=== PATIENT | male | born 1965 | race Caucasian/White ===

== ENCOUNTER 2017-12-11 12:05 | Emergency (ER) | payer SELFPAY ==
[~2017-12-11 12:05] MED LIST: ATORVASTATIN CALCIUM 80 MG TABLET PO SCH
--- NOTE | 2017-12-11 13:07 | ER Document Report ---
ED Medical Screen (RME) - General Chief Complaint: Chest Pain Stated Complaint: CHEST PAIN Time Seen by Provider: 12/11/17 13:05 Notes: pt with no previous hx of CAD presents with three hours of cp that started at work. no previous workup. no pmd or daily meds TRAVEL OUTSIDE OF THE [place] IN LAST 30 DAYS: No - Related Data Allergies/Adverse Reactions: No Known Allergies Allergy (Unverified 12/11/17 12:59) Past Medical History - Social History Frequency of alcohol use: None Renal/ Medical History: Denies: Hx Peritoneal Dialysis Physical Exam - Vital signs Vitals: Temp Pulse Resp BP Pulse Ox 98.3 F 86 16 152/87 H 95 12/11/17 12:27 12/11/17 12:27 12/11/17 12:27 12/11/17 12:27 12/11/17 12:27 Course - Vital Signs Vital signs: Temp Pulse Resp BP Pulse Ox 98.3 F 86 16 152/87 H 95 12/11/17 12:27 12/11/17 12:27 12/11/17 12:27 12/11/17 12:27 12/11/17 12:27
--- NOTE | 2017-12-11 13:36 | RADIOLOGY REPORT (SQ) ---
EXAM DESCRIPTION: CHEST PA/LAT COMPLETED DATE/TIME: 12/11/2017 1:14 pm REASON FOR STUDY: cp COMPARISON: None. EXAM PARAMETERS: NUMBER OF VIEWS: two views TECHNIQUE: Digital Frontal and Lateral radiographic views of the chest acquired. RADIATION DOSE: NA LIMITATIONS: none FINDINGS: LUNGS AND PLEURA: No opacities, masses or pneumothorax. No pleural effusion. MEDIASTINUM AND HILAR STRUCTURES: No masses or contour abnormalities. HEART AND VASCULAR STRUCTURES: Heart normal size. No evidence for failure. BONES: No acute findings. HARDWARE: None in the chest. OTHER: No other significant finding. IMPRESSION: NO SIGNIFICANT RADIOGRAPHIC FINDING IN THE CHEST. TECHNICAL DOCUMENTATION: JOB ID: [id number] [employer]- All Rights Reserved Reading location - IP/workstation name: [email or web address]
[2017-12-11 13:44] LABS: ABSOLUTE EOSINOPHILS # (AUTO) 0.2 10^3/uL (0.0-0.6); ABSOLUTE MONOCYTES (AUTO) 0.4 10^3/uL (0.1-1.4); ABSOLUTE NEUT (AUTO) 2.8 10^3/uL (1.7-8.2); BASOPHILS % (AUTO) 0.8 % (0-2); EOSINOPHILS % (AUTO) 3.3 % (0-6); HEMATOCRIT 45.6 % (37.9-51.0); LYMPHOCYTES % (AUTO) 37.3 % (13-45); MEAN CORPUSCULAR HEMOGLOBIN 28.1 pg (27.0-33.4); MEAN CORPUSCULAR HGB CONC 32.8 g/dL (32.0-36.0); MEAN CORPUSCULAR VOLUME 86 fl (80-97); MONOCYTES % (AUTO) 7.9 % (3-13); PLATELET COUNT 294 10^3/uL (150-450); RED BLOOD COUNT 5.32 10^6/uL (4.35-5.55); RED CELL DISTRIBUTION WIDTH 13.8 % (11.5-14.0); SEGMENTED NEUTROPHILS % (AUTO) 50.7 % (42-78); TOTAL CELLS COUNTED % (AUTO) 100 %; WHITE BLOOD COUNT 5.4 10^3/uL (4.0-10.5)
[2017-12-11 14:04] LABS: ALANINE AMINOTRANSFERASE 27 U/L (21-72); ALBUMIN 4.5 g/dL (3.5-5.0); ALKALINE PHOSPHATASE 72 U/L (38-126); ANION GAP 9 (5-19); ASPARTATE AMINO TRANSFERASE 20 U/L (17-59); BILIRUBIN,DIRECT 0.3 mg/dL (0.0-0.4); BILIRUBIN,TOTAL 0.5 mg/dL (0.2-1.3); BLOOD UREA NITROGEN 13 mg/dL (7-20); CALCIUM 9.8 mg/dL (8.4-10.2); CARBON DIOXIDE 25 mmol/L (22-30); CHLORIDE 109 mmol/L (98-107); GLUCOSE 76 mg/dL (75-110); POTASSIUM 4.3 mmol/L (3.6-5.0); SODIUM 142.8 mmol/L (137-145); TOTAL PROTEIN 7.8 g/dL (6.3-8.2)
--- NOTE | 2017-12-11 14:15 | EKG REPORT ---
SEVERITY:- ABNORMAL ECG - SINUS RHYTHM LEFT POSTERIOR FASCICULAR BLOCK : Confirmed by: Alejandro Jaime MD 11-Dec-2017 14:15:27
--- NOTE | 2017-12-11 14:24 | ER Document Report ---
ED Cardiac - General Mode of Arrival: Ambulatory Information source: Patient TRAVEL OUTSIDE OF THE [place] IN LAST 30 DAYS: No <LUPE MARSHALL - Last Filed: 12/11/17 14:36> <HÉCTOR TOSCANO - Last Filed: 12/14/17 09:28> - General Chief Complaint: Chest Pain Stated Complaint: CHEST PAIN Time Seen by Provider: 12/11/17 13:05 Notes: Patient is a 52-year-old male who smokes 1.5 packs of cigarettes a day that presents to the emergency department today with complaints of right-sided chest pain which began this morning at 0800 while at work. 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 Patient describes his pain as a pressure and he describes it as right-sided. Patient states he got off the lift when the chest pain began and it subsided after rest. Patient states when he went back to work again the pain came back. Patient mentions that he has had a cough for 1-2 weeks. Patient states he has never had a cardiac workup in the past but he has no coronary artery disease to his knowledge. Patient states he has no positive family history of cardiac disease. Patient denies any shortness of breath, radiation of pain, change in his pain with movements, recent long trips, history of PE/DVT, or leg swelling. (LUPE MARSHALL) - Related Data Allergies/Adverse Reactions: No Known Allergies Allergy (Unverified 12/11/17 12:59) Past Medical History - General Information source: Patient - Social History Smoking Status: Current Every Day Smoker Cigarette use (# per day): Yes - 1.5 ppd Frequency of alcohol use: None Lives with: Family Family History: Reviewed & Not Pertinent Patient has suicidal ideation: No Patient has homicidal ideation: No - Medical History Medical History: Negative Surgical Hx: Negative <LUPE MARSHALL - Last Filed: 12/11/17 14:36> Review of Systems - Review of Systems Constitutional: No symptoms reported EENT: No symptoms reported Cardiovascular: See HPI, Chest pain - right sided Respiratory: See HPI, Cough. denies: Short of breath Gastrointestinal: No symptoms reported Genitourinary: No symptoms reported Male Genitourinary: No symptoms reported Musculoskeletal: denies: Leg swelling Skin: No symptoms reported Hematologic/Lymphatic: No symptoms reported Neurological/Psychological: No symptoms reported -: Yes All other systems reviewed and negative <LUPE MARSHALL - Last Filed: 12/11/17 14:36> Physical Exam <LUPE MARSHALL - Last Filed: 12/11/17 14:36> <HÉCTOR TOSCANO - Last Filed: 12/14/17 09:28> - Vital signs Vitals: Temp Pulse Resp BP Pulse Ox 98.3 F 86 16 152/87 H 95 12/11/17 12:27 12/11/17 12:27 12/11/17 12:27 12/11/17 12:27 12/11/17 12:27 - Notes Notes: Physical Exam: General: Alert, appears well. HEENT: Normocephalic. Atraumatic. PERRL. Extraocular movements intact. Oropharynx clear. Neck: Supple. Non-tender. Respiratory: No respiratory distress. Clear and equal breath sounds bilaterally. Cardiovascular: Regular rate and rhythm. Abdominal: Normal Inspection. Non-tender. No distension. Normal Bowel Sounds. Back: Non-tender. No deformity or step off. Extremities: Moves all four extremities. Upper extremities: Normal inspection. Normal ROM. Lower extremities: Normal inspection. No edema. Normal ROM. Neurological: Normal cognition. AAOx4. Normal speech. Psychological: Normal affect. Normal Mood. Skin: Warm. Dry. Normal color. (LUPE MARSHALL) Course - Laboratory Result Diagrams: 12/11/17 13:25 12/11/17 13:25 <LUPE MARSHALL - Last Filed: 12/11/17 14:36> - Laboratory Result Diagrams: 12/11/17 13:25 12/11/17 13:25 <HÉCTOR TOSCANO - Last Filed: 12/14/17 09:28> - Re-evaluation Re-evalutation: 12/11/17 14:27 Patient with heart score of four presents with intermittent right sided chest pain that is not reproducible. Patient found to have T-wave inversions in lead V4 V5 due to abnormal EKG will be admitted for further inpatient workup for his chest pain. Aspirin provided in the emergency department. Initial workup negative (HÉCTOR TOSCANO) - Vital Signs Vital signs: Temp Pulse Resp BP Pulse Ox 98.3 F 86 16 153/117 H 96 12/11/17 12:27 12/11/17 12:27 12/11/17 16:01 12/11/17 16:01 12/11/17 16:01 - Laboratory Laboratory results interpreted by me: 12/11/17 13:25 Chloride 109 H Discharge <LUPE MARSHALL - Last Filed: 12/11/17 14:36> - Discharge Admitting Provider: [facility] Unit Admitted: Telemetry <HÉCTOR TOSCANO - Last Filed: 12/14/17 09:28> - Discharge Condition: Good Disposition: ADMITTED OBSERVATION Instructions: Chest Pain of Unclear Cause ([facility]) Scribe Attestation: 12/14/17 09:27 I personally performed the services described in the documentation, reviewed and edited the documentation which was dictated to the scribe in my presence, and it accurately records my words and actions. (HÉCTOR TOSCANO) Scribe Documentation - Scribe Written by Scribe:: Debbie Sorto, 12/11/2017 1441 acting as scribe for :: Abran <ULPE MARSHALL - Last Filed: 12/11/17 14:36>
[2017-12-11] MEDS ORDERED: ASPIRIN 81 MG TABLET, CHEWABLE PO ONE (14:26)
[2017-12-11] MEDS ORDERED: ONDANSETRON HCL INJ/PF 4 MG/2 ML SDV IV PRN (14:28)
[2017-12-11] MEDS ORDERED: ZOLPIDEM TARTRATE 5 MG TABLET PO PRN (14:28)
[2017-12-11] MEDS ORDERED: NITROGLYCERIN 0.4 MG/TAB 25 TAB/BOTTLE SL PRN (14:28)
[2017-12-11] MEDS ORDERED: ACETAMINOPHEN 325 MG TABLET PO PRN (14:28)
[2017-12-11] MEDS ORDERED: OXYCODONE-ACETAMINOPHEN 5-325 MG TABLET PO PRN (14:28)
[2017-12-11] MEDS ORDERED: NICOTINE 21 MG/24 HR PATCH.TD24 TD ONE (15:30)
[2017-12-11] MEDS ORDERED: LANSOPRAZOLE 30 MG TAB.RAP.DR PO SCH (16:00)
[2017-12-11 16:11] VITALS: BP 153/117
--- NOTE | 2017-12-11 17:24 | PDOC H&P ---
History of Present Illness Admission Date/PCP: December 11, 2017 No PCP Patient complains of: Chest pain prior to presenting to emergency room History of Present Illness: SAJAN SOLITARIO is a 52 year old malePresents via private vehicle to emergency room complaining of right-sided chest pain while he was at work. 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 Pain would come off and on and was twitching like. He initially was concerned that is related to a cold since a lot of people at work had been having a cold. Since it persisted notified his superior who took him over to emergency room. By the time he arrived to emergency room pain had resolved. Patient admits smoking 2 packs of cigarettes daily. He denies diabetes or hypertension. He denies family history of coronary artery disease. He denies having similar episode in the past. Heart score was obtained while in emergency room and it was 4. Hospitalist service was consulted and prompted to admit for observation purposes Past Medical History Cardiac Medical History: Reports: None Pulmonary Medical History: Reports: None EENT Medical History: Reports: None Neurological Medical History: Reports: None Endocrine Medical History: Reports: None Renal/ Medical History: Reports: None GI Medical History: Reports: None Musculoskeltal Medical History: Reports: None Skin Medical History: Reports: None Psychiatric Medical History: Reports: None Traumatic Medical History: Reports: None Hematology: Reports: None Infectious Medical History: Reports: None Past Surgical History Past Surgical History: Reports: None Social History Information Source: Patient Lives with: Family Smoking Status: Current Every Day Smoker Cigarettes Packs Per Day: 2 Frequency of Alcohol Use: None Hx Recreational Drug Use: No Drugs: None - Advance Directive Resuscitation Status: Full Code Family History Family History: Reviewed & Not Pertinent Parental Family History Reviewed: Yes Children Family History Reviewed: Yes Sibling(s) Family History Reviewed.: Yes Medication/Allergy Allergies/Adverse Reactions: No Known Allergies Allergy (Unverified 12/11/17 12:59) Review of Systems Constitutional: ABSENT: fatigue, weakness Eyes: ABSENT: visual disturbances Ears: ABSENT: hearing changes Cardiovascular: PRESENT: chest pain. ABSENT: dyspnea on exertion, edema, palpitations Respiratory: ABSENT: dyspnea Gastrointestinal: ABSENT: nausea, vomiting Neurological: ABSENT: dizziness, focal weakness, weakness Endocrine: ABSENT: polyphagia, polyuria Physical Exam Vital Signs: Temp Pulse Resp BP Pulse Ox 98.3 F 86 16 152/87 H 95 03/26/18 12:27 12/11/17 12:27 12/11/17 12:27 12/11/17 12:27 12/11/17 12:27 Intake & Output 12/10/17 12/11/17 12/12/17 06:59 06:59 06:59 Weight 99 kg Results Laboratory Results: 12/11/17 13:25 12/11/17 13:25 12/11/17 12/11/17 13:25 13:25 WBC 5.4 RBC 5.32 Hgb 15.0 Hct 45.6 MCV 86 MCH 28.1 MCHC 32.8 RDW 13.8 Plt Count 294 Seg Neutrophils % 50.7 Lymphocytes % 37.3 Monocytes % 7.9 Eosinophils % 3.3 Basophils % 0.8 Absolute Neutrophils 2.8 Absolute Lymphocytes 2.0 Absolute Monocytes 0.4 Absolute Eosinophils 0.2 Absolute Basophils 0.0 Sodium 142.8 Potassium 4.3 Chloride 109 H Carbon Dioxide 25 Anion Gap 9 BUN 13 Creatinine 0.83 Est GFR ( Amer) > 60 Est GFR (Non-Af Amer) > 60 Glucose 76 Calcium 9.8 Total Bilirubin 0.5 AST 20 ALT 27 Alkaline Phosphatase 72 Total Protein 7.8 Albumin 4.5 12/11/17 13:25 Troponin I < 0.012 Impressions: Chest X-Ray 12/11/17 13:05 IMPRESSION: NO SIGNIFICANT RADIOGRAPHIC FINDING IN THE CHEST. Assessment & Plan - Diagnosis (1) Tobacco abuse Is this a current diagnosis for this admission?: Yes Plan: Patient educated about quitting. He will be placed on a nicotine patch (2) Chest pain Qualifiers: Chest pain type: unspecified Qualified Code(s): R07.9 - Chest pain, unspecified Is this a current diagnosis for this admission?: Yes Plan: Patient will be placed on telemetry unit. Troponin will be trended. Will order nuclear stress test. Chest pain appears to be atypical in nature. Will order a urine drug screen. To place on Lipitor, aspirin and nitro as needed - Time Time Spent: 30 to 50 Minutes Medications reviewed and adjusted accordingly: Yes Anticipated discharge: Home Within: within 24 hours - Inpatient Certification Based on my medical assessment, after consideration of the patient's comorbidities, presenting symptoms, or acuity I expect that the services needed warrant INPATIENT care.: No I certify that my determination is in accordance with my understanding of Medicare's requirements for reasonable and necessary INPATIENT services [42 CFR 412.3e].: Yes Medical Necessity: Need Close Monitoring Due to Risk of Patient Decompensation, Need For Continuous Telemetry Monitoring
[2017-12-11] MEDS ORDERED: HEPARIN SOD (PORCINE) 5,000 UNIT/ML 1 ML SYRINGE SUBCUT SCH (22:00)
[2017-12-12] MEDS ORDERED: ASPIRIN 81 MG TABLET, CHEWABLE PO SCH (10:00)
== END 2017-12-11 17:58 | disposition admitted as inpatient to this hospital (09) ==
LOC: ER 12:05
DX: R07.9 Chest pain, unspecified (principal); R05 Cough; F17.210 Nicotine dependence, cigarettes, uncomplicated
CPT/HCPCS: 36415; 71046; 80053; 84484; 85025; 93005; 93010; 99285